=== PATIENT | male | born 1975 | race Caucasian/White ===

== ENCOUNTER → 2022-09-11 13:12 | Outpatient (CLI) | payer OTHER, SELFPAY ==
--- NOTE | ~2022-09-11 | XR_ITS ---
EXAMINATION: XR fl inj shoulder RT - MR/CT DATE: 09/11/2022 14:51 INDICATION: Right shoulder pain TECHNIQUE: A time-out was performed to verify the patient's name, date of , and procedure to b e performed. The procedure including the risks and benefits was discussed with the patient. Risks dis cussed included bleeding and infection. The patient understood the risks and agreed to proceed. The s kin overlying the right glenohumeral joint was prepared and draped in usual sterile fashion. The skin and subcutaneous tissues were infiltrated with 1% lidocaine for local anesthesia. A 22 G needle was advanced under fluoroscopic guidance into the joint. Injectate consisting of 15 mL of 1:200 0.1 mmol /kg Multihance, 1:4 1% lidocaine, and 1:4 Omnipaque 240 was instilled. The needle was removed and the entry site was cleaned and dressed. There were no immediate complications. Fluoroscopy exposure time was 0.9 minutes. The DAP for this procedure was 3.221 Gycm2. FINDINGS: Real-time fluoroscopy demonstrates the needle and contrast in the right glenohumeral joint. IMPRESSION: 1. Successful right glenohumeral joint injection of contrast for subsequent MR arthrography. Reviewed, dictated and finalized at location B.
--- NOTE | ~2022-09-11 | MR_ITS ---
EXAMINATION: MR shoulder RT w con DATE: 09/11/2022 15:13 INDICATION: Right rotator cuff tear. TECHNIQUE: Magnetic resonance imaging (MRI) of the right shoulder was performed following intra-emily cular gadolinium contrast injection and without intravenous contrast. Details of the glenohumeral nick nt injection have been dictated separately. Sequences included axial T2-weighted FS FSE, axial T1-we ighted FS FSE, coronal oblique T1-weighted FS FSE, coronal oblique T2-weighted FSE, sagittal T2-weigh wesley FS FSE, sagittal T1-weighted FSE, and ABER (abduction external rotation) T1-weighted FS FSE. COMPARISON: None. FINDINGS: Coracoacromial arch: The acromion undersurface is curved in morphology (type II). The coracoacromial ligament is normal. A cromioclavicular joint is normal. Rotator cuff: Mild supraspinatus, infraspinatus and subscapularis tendinopathy without tear. The teres minor tendon is normal. Normal rotator cuff muscle bulk and signal. Biceps tendon, glenoid labrum and glenohumeral cartilage: Long head of the biceps tendon is intact. There is a tear at the 10:00-11:00 position of the posteros uperior glenoid labrum. Bones and other: Normal marrow signal with no edema, fracture or abnormal marrow replacing process. Mild cystic change at the middle facet of the greater tuberosity. Mild partial-thickness cartilage loss with smooth cho ndral surface along the inferomedial aspect of the humeral head. 2.3 x 1.3 x 0.5 cm lobular fluid col lection underlying the base of the acromion which is more localized than would be expected for the bu rsa and would favor a ganglion cyst over bursitis. There is extravasation of contrast into the rotato r cuff interval soft tissues at the site of injection. IMPRESSION: 1. Mild subscapularis, supraspinatus and infraspinatus tendinopathy without tear. 2. Mild glenohumeral osteoarthritis with tear at the posterosuperior labrum. 3. 2.3 x 1.3 x 0.5 cm lobular loculated fluid collection underlying the base of the acromion and woul d favor a ganglion cyst over mild subacromial/subdeltoid bursitis. Reviewed, dictated and finalized at location A. IMPRESSION: 1. Mild subscapularis, supraspinatus and infraspinatus tendinopathy without tea r. 2. Mild glenohumeral osteoarthritis with tear at the posterosuperior labrum. 3. 2.3 x 1.3 x 0.5 cm lobular loculated fluid collection underlying the base of the acromion and would favor a ganglion cyst over mild subacromial/subdeltoid bursitis.
== END ==
PROVIDERS: PCP Nurse Practitioner Family
DX: S43.431D Superior glenoid labrum lesion of right shoulder, subsequent encounter (principal); X58.XXXD Exposure to other specified factors, subsequent encounter; M75.121 Complete rotator cuff tear or rupture of right shoulder, not specified as traumatic; M19.011 Primary osteoarthritis, right shoulder
CPT/HCPCS: 23350; 73222; 77002; A9577; Q9967